=== PATIENT | male | born 2000 | race Caucasian/White ===

== ENCOUNTER 2024-05-01 13:31 | Outpatient (CLI) | payer BC, SELFPAY ==
[2024-05-01 23:19] LABS: Chlamydia DNA Amplified* NOT DETECTED (No Detected); GC DNA Amplified* NOT DETECTED (No Detected)
== END 2024-05-01 13:32 | disposition home or self-care (01) ==
PROVIDERS: Visit Provider Nurse Practitioner
DX: Z20.2 Contact with and (suspected) exposure to infections with a predominantly sexual mode of transmission (principal); Z11.3 Encounter for screening for infections with a predominantly sexual mode of transmission
CPT/HCPCS: 87491; 87591; 87661